=== PATIENT | female | born 1990 | race Caucasian/White ===

== ENCOUNTER 2019-06-17 07:46 | Emergency (ER) | payer OTHER ==
[~2019-06-17] VITALS: Ht 162.6 cm; Wt 112.0 kg
[2019-06-17] MEDS ORDERED: DEPO-PROVER150 MG/M1 IM (08:04)
[2019-06-17] MEDS ORDERED: TRAZODONE 150150 M1 PO (08:04)
[2019-06-17] MEDS ORDERED: ZOLOFT 50 MG TA50 M1 PO (08:04)
[2019-06-17 08:58] LABS: HEMATOCRIT 40.6 % (37.0-47.0); HEMOGLOBIN 14.2 gm/dL (12.0-15.0); MCH 27.5 pg (26.0-34.0); MCV 78.6 fL (80.0-100.0); MPV 6.5 fl. (7.2-11.1); NUCLEATED RBCS 0 /100WBC; PLATELET COUNT* 374 thou/uL (150-400); RBC 5.17 mil/uL (4.20-5.00); RDW-CV 13.6 % (10.5-14.5); WBC 10.9 thou/uL (4.0-11.0)
[2019-06-17 09:16] LABS: CALCIUM 9.1 mg/dL (8.5-10.1); CREATININE 0.7 mg/dL (0.6-1.3); POTASSIUM 3.3 mmol/L (3.5-5.1)
[2019-06-17 09:20] LABS: ALBUMIN 3.1 g/dL (3.4-5.0); TOTAL BILIRUBIN 0.3 mg/dL (<0.1-1.0); TOTAL PROTEIN 7.4 g/dL (6.4-8.2)
[2019-06-17 09:37] LABS: ABSOLUTE EOSINOPHILS 0.1 thou/uL (0.0-0.7); ABSOLUTE LYMPHOCYTES 0.7 thou/uL (0.8-5.3); ABSOLUTE MONOCYTES 0.4 thou/uL (0.0-1.2); ABSOLUTE NEUTROPHILS 9.7 thou/uL (1.6-8.1); PLATELET ESTIMATE ADEQUATE
[2019-06-17] MEDS ORDERED: LEVAQUIN 500 M500 M2 PO (10:48)
--- NOTE | 2019-06-17 11:02 | EKG ---
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1990 Requested By: Chandler Vargas Order Number: [id number] MD: Ryan Campuzano Measurements Intervals [place] Rate: 89 P: 30 [place]: 166 QRS: 17 QRSD: 88 T: 5 QT: 348 QTc: 424 Interpretive Statements Sinus rhythm nonspecific t wave changes Probable left atrial enlargement No previous ECG available for comparison Electronically Signed On 06-17-2019 11:01:58 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
[2019-06-17 11:07] VITALS: BP 132/58
== END 2019-06-17 11:08 | disposition home or self-care (01) ==
LOC: M.ERS 07:46
PROVIDERS: Family Medicine
DX: J18.9 Pneumonia, unspecified organism (principal); F41.9 Anxiety disorder, unspecified

== ENCOUNTER 2021-06-10 10:47 | Observation (INO) | payer OTHER ==
[~2021-06-10] VITALS: Ht 165.1 cm; Wt 108.9 kg
[~2021-06-10 10:47] MED LIST: DEPO-PROVER150 MG/M1 IM; DESYREL150 MG PO; LEVAQUIN 500 M500 M2 PO; ZOLOFT 50 MG TA50 MG PO
[2021-06-10 10:50] VITALS: BP 118/88
[2021-06-10 11:19] LABS: URINE BLOOD 1+ (Negative); URINE CLARITY CLEAR; URINE COLOR YELLOW; URINE GLUCOSE-RANDOM NEGATIVE (Negative); URINE LEUKOCYTES NEGATIVE (Negative); URINE NITRITE NEGATIVE (Negative); URINE PROTEIN TRACE (Negative); URINE SPECIFIC GRAVITY >= 1.030 (1.005-1.030); URINE UROBILINOGEN 0.2 E.U./dl (0.2-1.0)
[2021-06-10 11:20] LABS: URINE KETONES 3+ (Negative)
[2021-06-10 11:21] LABS: ICTOTEST (BILI CONFIRMATORY) Negative (Negative); URINE BILIRUBIN 1+ (Negative)
[2021-06-10 11:24] LABS: SQUAMOUS 4-10 Moderate /LPF (0-3)
[2021-06-10 11:25] LABS: URINE RBC 0-2 Rare /HPF (0-2); URINE WBC None Seen /HPF (0-5)
[2021-06-10 11:26] LABS: CASTS None Seen /LPF (None Seen); CRYSTALS None Seen /LPF (None Seen); MUCUS 0-3 Light strn/LPF (None Seen)
[2021-06-10 12:52] LABS: CALCIUM 9.5 mg/dL (8.5-10.1); CREATININE 0.7 mg/dL (0.6-1.3); POTASSIUM 3.5 mmol/L (3.5-5.1)
[2021-06-10 12:54] LABS: ABSOLUTE LYMPHOCYTES 1.2 thou/uL (0.8-5.3); ABSOLUTE MONOCYTES 0.8 thou/uL (0.0-1.2); ABSOLUTE NEUTROPHILS 8.4 thou/uL (1.6-8.1); BASOPHILS 0.3 %; EOSINOPHILS 0.2 %; HEMOGLOBIN 15.9 gm/dL (12.0-15.0); LYMPHOCYTES 11.6 %; MCH 27.5 pg (26.0-34.0); MCHC 34.5 g/dL (28.0-37.0); MCV 79.8 fL (80.0-100.0); MONOCYTES 7.6 %; MPV 6.8 fl. (7.2-11.1); NUCLEATED RBCS 0 /100WBC; PLATELET COUNT* 340 thou/uL (150-400); POLYS 80.3 %; RBC 5.76 mil/uL (4.20-5.00); RDW-CV 13.3 % (10.5-14.5); WBC 10.4 thou/uL (4.0-11.0)
[2021-06-10 12:57] LABS: ALBUMIN 3.8 g/dL (3.4-5.0); TOTAL BILIRUBIN 0.7 mg/dL (<0.1-1.0); TOTAL PROTEIN 8.6 g/dL (6.4-8.2)
[2021-06-10 18:32] VITALS: BP 113/50
[2021-06-10 21:22] VITALS: BP 113/50
[2021-06-11] VITALS: BP 105/54
[2021-06-11 04:00] VITALS: BP 120/61
[2021-06-11 05:56] LABS: ABSOLUTE EOSINOPHILS 0.1 thou/uL (0.0-0.7); ABSOLUTE LYMPHOCYTES 1.9 thou/uL (0.8-5.3); ABSOLUTE MONOCYTES 0.6 thou/uL (0.0-1.2); ABSOLUTE NEUTROPHILS 4.4 thou/uL (1.6-8.1); BASOPHILS 0.5 %; HEMATOCRIT 39.5 % (37.0-47.0); LYMPHOCYTES 27.2 %; MCH 27.5 pg (26.0-34.0); MCHC 34.7 g/dL (28.0-37.0); MCV 79.4 fL (80.0-100.0); MONOCYTES 8.7 %; MPV 7.1 fl. (7.2-11.1); NUCLEATED RBCS 0 /100WBC; PLATELET COUNT* 275 thou/uL (150-400); POLYS 62.6 %; RBC 4.98 mil/uL (4.20-5.00); RDW-CV 13.3 % (10.5-14.5)
[2021-06-11 05:58] LABS: CALCIUM 8.7 mg/dL (8.5-10.1); CREATININE 0.6 mg/dL (0.6-1.3); POTASSIUM 3.2 mmol/L (3.5-5.1)
[2021-06-11 06:09] LABS: HEMOGLOBIN 13.7 gm/dL (12.0-15.0)
[2021-06-11 08:12] VITALS: BP 100/47
[2021-06-11 11:15] VITALS: BP 112/51
[2021-06-11] MEDS ORDERED: AUGMENTIN 875-1 EACH PO (12:54)
[2021-06-11] MEDS ORDERED: ELIQUIS5 MG PO (12:54)
[2021-06-11] MEDS ORDERED: ELIQUIS5 M1 PO (12:54)
[2021-06-11] MEDS ORDERED: NORCO5 PO (12:54)
[2021-06-11 15:47] VITALS: BP 112/51
== END 2021-06-11 18:35 | disposition home or self-care (01) ==
LOC: M.ERS 10:47 → M.ORTHSURG 14:26 → M.TBA-ER 14:26 → M.ORTHSURG 21:12
PROVIDERS: Emergency Medicine; Physician Assistant; ADMIT Internal Medicine; ATTEND Internal Medicine
DX: I26.99 Other pulmonary embolism without acute cor pulmonale (principal); Z20.822 Contact with and (suspected) exposure to COVID-19; J18.9 Pneumonia, unspecified organism; F41.9 Anxiety disorder, unspecified; K58.9 Irritable bowel syndrome, unspecified; E66.01 Morbid (severe) obesity due to excess calories